=== PATIENT | male | born 1950 | race Caucasian/White ===

== ENCOUNTER 2020-06-14 12:28 | Inpatient (IN) | payer MEDICARE, BC, SELFPAY ==
[2020-06-14] VITALS (10 sets, daily range): BP systolic 80–122; BP diastolic 48–80; PULSE 68–89; RESP 14–28; TEMP 36.4–37.3; O2SAT 95–100; BMI 32.1; BMI 38.7
--- NOTE | 2020-06-14 12:32 | XR_ITS ---
PROCEDURE: XR CHEST PORTABLE CLINICAL HISTORY: sepsis COMPARISON: No exams were available for comparison FINDINGS: There are low lung volumes. Bibasilar atelectasis or infiltrate noted.. Upper lobes are clear. There are degenerative changes in the shoulders. No acute bony abnormalities. IMPRESSION: Low lung volumes with bibasilar atelectasis/infiltrate Dictated by: Mark Posadas MD 06/14/2020 13:06 Mark Posadas MD in [place] 06/14/2020 13:06
--- NOTE | 2020-06-14 12:36 | HMH.EDSKAF ---
ED Disposition Clinical Impression: Toxic epidermal necrolysis, Dehydration Disposition: Admitted As Inpatient Condition on Discharge: Fair - Critical Care Critical Care Time: Yes Attestation: On , the high probability of a clinically significant, sudden or life threatening deterioration of the following system(s) required my full and direct attention, intervention and personal management. The time I documented below is in addition to time spent performing reported procedures but includes the following listed in this critical care notation. Total Critical Care Time: 35 Vital system(s) involved:: Circulatory Failure, Central Nervous System, Metabolic Failure, Respiratory Failure, Renal Failure, Shock (Septic) My critical care processes included: Assessment & monitoring of V/S, Initial and Re-exams, Data Review/Interpretation, Coordinating Care, Medication Orders and management, Documentation Medical Decision Making - Medical Records Medical records reviewed: Yes: I reviewed the patient's medical records. - Steve Inquiry Pt receiving controlled substance: No Vital Signs: 06/14/20 12:29 06/14/20 12:59 Temperature 97.6 F Temperature Source Oral Pulse Rate [Right Radial] 78 73 Respiratory Rate 28 H Blood Pressure [Right Arm] 115/56 L 114/66 Blood Pressure Mean [Right Arm] 75 82 Blood Pressure Source [Right Arm] Automatic Cuff Automatic Cuff Blood Pressure Position [Right Arm] Sitting Sitting 02 Sat by Pulse Oximetry 97 95 Oxygen Delivery Method Room Air Room Air - Lab Data Lab Results 06/14/20 12:39: WBC 11.9 H, RBC 3.88 L, Hgb 11.3 L, Hct 35.3 L, MCV 91.2, MCH 29.1, MCHC 31.9, RDW 18.7 H, Plt Count 424, MPV 7.6, Neut % (Auto) 68.0, Lymph % (Auto) 19.1, [place] % (Auto) 6.2, Eos % (Auto) 6.4, Baso % (Auto) 0.3, Neut # (Auto) 8.1 H, Lymph # (Auto) 2.3, [place] # (Auto) 0.7, Eos # (Auto) 0.8 H, Baso # (Auto) 0.0 06/14/20 12:39: Sodium 132 L, Potassium 5.2 H, Chloride 94 L, Carbon Dioxide 28, Anion Gap 15.2 H, BUN 49 H, Creatinine 1.40 H, Estimated Creat Clear 79, Estimated GFR 50 L, Est GFR ( Amer) 61, Glucose 105 H, Calcium 9.3 06/14/20 12:39: Lactate 1.6 06/14/20 12:39: Total Bilirubin 0.6, Direct Bilirubin 0.5 H, Conjugated Bilirubin 0.0, Indirect Bilirubin 0.1, Unconjugated Bilirubin 0.1, AST 68 H, ALT 18, Alkaline Phosphatase 63, Total Protein 7.5, Albumin 3.5 Result diagrams: 06/14/20 12:39 06/14/20 12:39 Orders (Tests/Meds): ED MEDICATIONS Generic Name Dose Route Start Last Admin Trade Name Daltonq PRN Reason Stop Dose Admin Meropenem 1 gm/ Sodium 100 mls @ 100 mls/hr 06/14/20 13:30 06/14/20 13:12 Chloride IV 06/28/20 13:29 100 mls/hr Q8H BAO Administration Sodium Chloride 1,000 mls @ 100 mls/hr 06/14/20 13:45 Sod Chlor 0.9% 1000ml Bag IV 07/14/20 13:44 .Q10H BAO Sodium Chloride 3 ml 06/14/20 12:30 Sodium Chloride 3% 15ml Neb IH 07/14/20 12:29 ONCE PRN INDUCE SPUTUM COLLECTION Discontinued Medications Generic Name Dose Route Start Last Admin Trade Name Freq PRN Reason Stop Dose Admin Hydrocortisone Sodium Succinate 100 mg 06/14/20 12:35 06/14/20 13:01 Hydrocortisone Sod Succinate 100mg Vial IV 06/14/20 12:36 100 mg ONCE ONE Administration Sodium Chloride 1,000 mls @ 999 mls/hr 06/14/20 12:45 06/14/20 12:47 Sod Chlor 0.9% 1000ml Bag IV 06/14/20 13:45 999 mls/hr .Q1H1M BAO Administration Sodium Chloride 1,000 mls @ 999 mls/hr 06/14/20 12:45 06/14/20 13:12 Sod Chlor 0.9% 1000ml Bag IV 06/14/20 13:45 999 mls/hr .Q1H1M BAO Administration Sodium Chloride 1,000 mls @ 999 mls/hr 06/14/20 12:45 Sod Chlor 0.9% 1000ml Bag IV 06/14/20 13:45 .Q1H1M BAO ORDERS Category Date Time Status Activated Partial Thrombo Time Stat Lab 06/14/20 12:39 Received Covid-19 IgG/IgM ([facility]) Stat Lab 06/14/20 12:39 Received Prothrombin Time INR Stat Lab 06/14/20 12:39 Received Strep Scrn Group A (Rapid) Stat Lab 06/14/20 12:35
--- NOTE | 2020-06-14 12:54 | PC.NURSE ---
rad at BS for portable xray
--- NOTE | 2020-06-14 12:57 | PC.NURSE ---
pharmacy consult r/t allergies and possible reaction to cefepime that is ordered. ER MD gave verbal order for Meropenum, spoke with Ben in pharmacy states that will be okay for pt to have.
[2020-06-14 13:04] LABS: Basophils % 0.3 % (0.1-2.0); Eosinophils # 0.8 K/mm3 (0.0-0.4); Eosinophils % 6.4 % (0.1-12.0); Hematocrit 35.3 % (42.0-52.0); Hemoglobin 11.3 g/dL (14.1-18.0); Lymphocytes # 2.3 K/mm3 (0.7-4.5); Lymphocytes % 19.1 % (10-50); Mean Corpuscular HGB Conc 31.9 g/dL (31.8-35.4); Mean Corpuscular Hemoglobin 29.1 pg (27.0-31.2); Mean Corpuscular Volume 91.2 fl (80-94); Mean Platelet Volume 7.6 fl (7.4-10.4); Monocytes # 0.7 K/mm3 (0.1-1.0); Monocytes % 6.2 % (1.7-9.3); Neutrophils # 8.1 K/mm3 (1.8-7.8); Platelet Count 424 K/mm3 (142-424); Red Blood Count 3.88 M/mm3 (4.60-6.20); Red Cell Distribution Width 18.7 % (11.5-17.5); White Blood Count 11.9 K/mm3 (4.8-10.8)
[2020-06-14 13:20] LABS: Alanine Aminotransferase 18 U/L (12-78); Albumin Level 3.5 g/dl (3.5-5.0); Alkaline Phosphatase 63 U/L (38-126); Aspartate Amino Transferase 68 U/L (17-59); Bilirubin,Direct 0.5 mg/dl (0.0-0.4); Bilirubin,Indirect 0.1 mg/dL (0.0-0.9); Bilirubin,Total 0.6 mg/dl (0.2-1.3); Bilirubin,Unconjugated 0.1 mg/dL (0.0-1.1); Total Protein,Serum 7.5 g/dl (6.3-8.2)
[2020-06-14 13:21] LABS: Anion Gap 15.2 mEq/L (5-15); Blood Urea Nitrogen 49 mg/dl (9-20); Calcium 9.3 mg/dl (8.4-10.2); Carbon Dioxide 28 mmol/L (22.0-30.0); Chloride 94 mmol/L (98-107); Creatinine Clearance Estimated 79 mL/min (50-200); Estimated Glomerular Filt Rate 50 ml/min (>60); GFR (African American) 61 ML/MIN (>60); Glucose 105 mg/dl (74-100); Lactic Acid 1.6 mmol/L (0.7-2.1); Potassium 5.2 mmoL/L (3.5-5.1); Sodium 132 mmol/L (136-145)
--- NOTE | 2020-06-14 13:43 | PC.NURSE ---
ASIA LLOYD spoke with Dr. Hargrove who is litigation assistant for Service pt.
--- NOTE | 2020-06-14 13:44 | PC.NURSE ---
notified care management of admission
[2020-06-14 14:04] LABS: Microscopic, Urine URINE MICROSCOPIC (MICROSCOPIC)
[2020-06-14 14:08] LABS: Appearance,Urine CLEAR (Clear); Bilirubin,Urine Negative (Negative); Blood, Urine 1+ (Negative); Color,Urine YELLOW (Yellow); Glucose,Urine (UA) Negative (Negative); Ketones,Urine Negative (Negative); Leukocyte Esterase,Urine 3+ (Negative); Nitrate,Urine POSITIVE (Negative); Protein,Urine Negative (Negative); Specific Gravity, Urine <= 1.005 (1.005-1.030); Urobilinogen,Urine 0.2 EU/dl (0.2)
--- NOTE | 2020-06-14 14:13 | PC.NURSE ---
COLT ThomasN as BS
[2020-06-14 14:39] LABS: Bacteria,Urine 1+ /lpf; WBC,Urine 20-50 #/hpf (0-3)
--- NOTE | 2020-06-14 14:45 | HMH.HP ---
*Admission Date: 06/14/20 <Daya Gamble - 06/14/20 14:58> *Chief complaint: SOB; rash <Daya Gamble - 06/14/20 14:58> *History of present illness: Mr. Gill is a 69-year-old male with a previous history of CVA, diabetes mellitus, GERD, muscle and muscle cramps who was brought to [facility] for evaluation by his . The patient is cared for at home by his . She has home health who comes once a week. He has left-sided residual from CVA.. The does get him out of bed twice a day with the assistance of a lift. I am unable to understand the patient and history is obtained from his who is a nurse and very informative. She states the rash began about 1 week ago on the left arm. It has gradually progressed to where it is beet red now and extends to the trunk and upper legs, right arm and periarea. He has continued with persistent peeling. She states yesterday she could tell he was not feeling well. He moaned and had a gurgling type respiratory effort. He did sleep well last night but then began with this again this morning. His also notes that she restarted Skelaxin for muscle cramps 2 to 3 weeks ago. It was after this that he developed the rash. The rest of his meds he has been taking for quite a while. She brought him to the emergency room. She states he has not been coughing. He has not had a fever. She is she is not aware of any chest pain or abdominal pain. Patient had a stroke in July 2019 after which he was hospitalized for about a month and a half. He then went home briefly. He had developed a decubitus ulcer on his coccyx area which became worse and he was readmitted to [facility] for wound care in [facility] for this. He was there from August until November and has been treated at home ever since. He has been total care and is followed by Robyn Benton APRN who does home visits for him. He resides in [facility]. With evaluations in the emergency room chest x-ray revealed low lung volumes with bibasilar atelectasis/infiltrate. White blood cell count was elevated at 11,900 with a hemoglobin of 11.3 and hematocrit of 35.3. Sodium was 132 with a potassium of 5.2. Renal function showed insufficiency with a BUN of 49 creatinine of 1.4.. Liver function studies with an elevated AST at 68 and otherwise normal. Lactwasate 1.6. Blood sugar byp395. Urine revealed urinary tract infection with 3+ leuk esterase and 1+ bacteria and positive nitrates. Blood pressure on admission to the emergency room was 80/48 and improved to 122/72 after fluid boluses. O2 sats were 95% on room air. Heart rate was in the 70s. He was afebrile. He was started on meropenem and given fluid boluses. He was also given hydrocortisone 100 mg IV. He was then admitted for further evaluation and treatment. <Daya Gamble 06/14/20 15:37> [facility] History Medical History: Reports:: Cerebrovascular Accident, Diabetes Mellitus Type 2, Gastroesophageal Reflux Disease(GERD), Hypertension, Seizures <Daya Gamble 06/14/20 15:37> *Have you ever received a pneumonia vaccine?: No <Daya Gamble 06/14/20 14:58> *Have you received a flu vaccine this season?: No <Daya Gamble 06/14/20 14:58> Other Medical History: Reports: Hypothyroidism <Daya Gamble 06/14/20 14:58> Other Surgeries: Yes: Hernia Repair <MavisDaya 06/14/20 15:37> Comment: Trach and G-tube placement; ankle surgery; craniotomy for release of pressure from a bleed. 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
[2020-06-14 14:47] LABS: Coronavirus 19 IgG Antibody Negative (Negative); Coronavirus 19 IgM Antibody Negative (Negative)
--- NOTE | 2020-06-14 15:09 | PC.NURSE ---
notified ER of UA results
--- NOTE | 2020-06-14 15:38 | PC.NURSE ---
pt has increased work of breathing, notified ER MD, states to contact RT to place pt on bipap. SaO2 95% on RA, RR 28 RT staff is going to find bipap for pt. ER MD states to order an ABG but states it does not need to be prior to pt going on bipap
--- NOTE | 2020-06-14 15:45 | PC.NURSE ---
contacted second floor to check on status of bed being ready for pt, staff states room is ready for pt. Elo states she will come down to get report on pt.
--- NOTE | 2020-06-14 16:04 | PC.NURSE ---
report given to ARCELIA Hannon at this time.
[2020-06-14 16:14] LABS: Prothrombin Time 10.4 seconds (9.4-11.8)
[2020-06-14 16:15] LABS: Activated Partial Thrombo Time 26.7 seconds (23.6-34.0); INR 0.93 (0.9-1.1)
[2020-06-14 17:35] LABS: POC Glucose,Bedside 114 (70-110)
--- NOTE | 2020-06-14 17:58 | PC.WOUNDNOTE ---
Stage 3 noted to coccyx, Excoriation/Shearing noted to bilateral buttocks
--- NOTE | 2020-06-14 18:00 | PC.WOUNDNOTE ---
Red, scaly rash noted to entire body
[2020-06-14 19:30] LABS: ABG Base Excess -3.1 mmol/L (-2.4-2.3); ABG HCO3 21.8 mmhg (22.0-26.0); ABG Oxygen Saturation 99 % (90-100); ABG PCO2 36.3 mmhg (35.0-45.0); ABG PO2 124.1 mmhg (80-100); ABG TCO2 22.9 mmhg (23-27)
[2020-06-14 19:32] LABS: Allen's Test Acceptable; Oxygen 35 %; PEEP 5; Pressure Support 15; Source Left Radial; Vent Rate 14
[2020-06-14 21:44] LABS: POC Glucose,Bedside 91 (70-110)
[2020-06-15] VITALS (10 sets, daily range): BP systolic 112–142; BP diastolic 53–79; PULSE 85–100; RESP 14–22; TEMP 36.2–37.2; O2SAT 92–98; BMI 38.5
--- NOTE | 2020-06-15 03:13 | PC.NURSE ---
Pt remains alert to self only. Expiratory wheezing noted bilaterally t/o all lung ortega. No cough noted. Reddened, scaly areas noted t/o body. Stage 3 pressure ulcer noted to coccyx, dressing remains CDI. Pt has been a q2h turn and oral care this shift. Pt remains in airborne, droplet and contact precautions for positive COVID swab. New meds ordered per MD Hargrove. No other acute changes or complaints at this time.
[2020-06-15 06:15] LABS: POC Glucose,Bedside 89 (70-110)
--- NOTE | 2020-06-15 07:19 | P.CONPHA_ITS ---
[facility] Pharmacy VTE Monitoring - Patient Demographics Admission date: 06/15/20 Report Date: 06/15/20 Time: 07:19 Allergies/Adverse Reactions: Patient Allergies doxazosin [From Cardura] Allergy (Verified 06/14/20 12:45) Penicillins Allergy (Verified 06/14/20 12:45) cefdinir Adverse Reaction (Verified 06/14/20 12:45) Height: 1.88 m Weight: 136.191 kg Patient Problems: Current Active Problems Toxic epidermal necrolysis (Acute) Dehydration (Acute) History of CVA with residual deficit (Acute) Diabetes mellitus (Chronic) GERD (gastroesophageal reflux disease) (Chronic) Decubitus ulcer (Chronic) Urinary tract infection (Acute) Renal insufficiency (Acute) BMI 32.0-32.9,adult (Chronic) - VTE Risk Labs: VTE Related Lab Results Hgb 11.3 g/dL (14.1-18.0) L 06/14/20 12:39 Hct 35.3 % (42.0-52.0) L 06/14/20 12:39 Plt Count 424 K/mm3 (142-424) 06/14/20 12:39 PT 10.4 seconds (9.4-11.8) 06/14/20 12:39 INR 0.93 (0.9-1.1) 06/14/20 12:39 APTT 26.7 seconds (23.6-34.0) 06/14/20 12:39 BUN 49 mg/dl (9-20) H 06/14/20 12:39 Creatinine 1.40 mg/dl (0.66-1.25) H 06/14/20 12:39 Estimated Creat Clear 79 mL/min (50-200) 06/14/20 12:39 Was VTE Risk Assessment Performed: Yes VTE Score: 5 VTE Risk Level: Low Risk Clinical Trial Participant: No - Prophylaxis VTE Prophylaxis Ordered?: Yes Types of VTE Prophylaxis: TEDS Knee High
--- NOTE | 2020-06-15 09:39 | HMH.ACPN2 ---
<Daya Gamble - Last Filed: 06/15/20 09:39> Internal Medicine - PN: Subj *Date: 06/15/20 *Time: 09:39 Interval history: Mr. Gill does not answer questions this morning. His is at bedside and feels that he is better. He has been comfortable. She states that he slept well. She feels his respiratory status is more stable. She feels that his rash is better. Exam Vital signs and Labs for Last 24 Hours: Temp Pulse Resp BP Pulse Ox 98.4 F 88 19 112/53 L 92 L 06/15/20 08:00 06/15/20 08:00 06/15/20 08:00 06/15/20 08:00 06/15/20 08:00 Laboratory Results - last 24 hr 06/14/20 12:39: WBC 11.9 H, RBC 3.88 L, Hgb 11.3 L, Hct 35.3 L, MCV 91.2, MCH 29.1, MCHC 31.9, RDW 18.7 H, Plt Count 424, MPV 7.6, Neut % (Auto) 68.0, Lymph % (Auto) 19.1, [place] % (Auto) 6.2, Eos % (Auto) 6.4, Baso % (Auto) 0.3, Neut # (Auto) 8.1 H, Lymph # (Auto) 2.3, [place] # (Auto) 0.7, Eos # (Auto) 0.8 H, Baso # (Auto) 0.0 06/14/20 12:39: PT 10.4, INR 0.93, APTT 26.7 06/14/20 12:39: Sodium 132 L, Potassium 5.2 H, Chloride 94 L, Carbon Dioxide 28, Anion Gap 15.2 H, BUN 49 H, Creatinine 1.40 H, Estimated Creat Clear 79, Estimated GFR 50 L, Est GFR ( Amer) 61, Glucose 105 H, Calcium 9.3 06/14/20 12:39: Lactate 1.6 06/14/20 12:39: Total Bilirubin 0.6, Direct Bilirubin 0.5 H, Conjugated Bilirubin 0.0, Indirect Bilirubin 0.1, Unconjugated Bilirubin 0.1, AST 68 H, ALT 18, Alkaline Phosphatase 63, Total Protein 7.5, Albumin 3.5 06/14/20 12:39: SARS-CoV-2 IgG Ab (Rapid) Negative, SARS-CoV-2 IgM Ab (Rapid) Negative 06/14/20 13:51: Urine Color Yellow, Urine Appearance Clear, Urine pH 7.0, Ur Specific [place] <= 1.005, Urine Protein Negative, Urine Glucose (UA) Negative, Urine Ketones Negative, Urine Blood 1+, Urine Nitrate Positive, Urine Bilirubin Negative, Urine Urobilinogen 0.2, Ur Leukocyte Esterase 3+ A, Urine RBC 5-10, Urine WBC 20-50, Ur Squamous Epith Cells 3-5, Urine Bacteria 1+ 06/14/20 15:42: Specimen Source Left radial, O2 % 35, ABG pH 7.40, ABG pCO2 36.3, ABG pO2 124.1 H, ABG HCO3 21.8 L, ABG Total CO2 22.9 L, ABG O2 Saturation 99, ABG Base Excess -3.1 L, Mark Test Acceptable, Vent Rate 14, PEEP 5 06/14/20 17:16: POC Glucose 114 H 06/14/20 21:30: POC Glucose 91 06/15/20 05:58: POC Glucose 89 I & O for Last 24 hours: Intake & Output 06/12/20 06/13/20 06/14/20 06/15/20 11:59 11:59 11:59 11:59 Intake Total 1203 / 1203 Output Total 800 / 800 Balance 403 / 403 Weight 300 lb 4 oz Microbiology Reports for the Last 24 Hours: Microbiology 06/14/20 18:28 Nasopharyngeal Coronavirus COVID-19 PCR - Final - Constitutional no acute distress - *Routine Respiratory Exam Present: CTA bilaterally Comments: Patient with periodic congestive cough but breathing appears easy with no noises. - *Routine Cardiovascular Exam Present: RRR - *Routine Abdominal Exam Present: soft, normoactive bowel sounds Comments: G-tube is in place and site appears clean and dry. - *Routine Extremities Exam Present: edema (Improved) - *Routine Skin Exam Comments: Patient with less erythema on arms abdomen and upper legs. Also the edema is better. He still has some peeling of the skin. All in all the rash does appear much better. - *Routine Neurological Exam Responsive but does not focus today and does not try to answer questions. Assessment and Plan (1) History of CVA with residual deficit Status: Acute Category: Medical Code(s): I69.30 - Unspecified sequelae of cerebral infarction (2) Diabetes mellitus Status: Chronic Category: Medical Code(s): E11.9 - Type 2 diabetes mellitus without complications (3) GERD (gastroesophageal reflux disease) Status: Chronic Category: Medical Code(s): K21.9 - Gastro-esophageal reflux disease without esophagitis (4) Decubitus ulcer Status: Chronic Category: Medical Code(s): L89.90 - Pressure ulcer of unspecified site, unspecified stage (5) Dehydration Status:
--- NOTE | 2020-06-15 10:08 | HMH.PHAINT ---
HOME MEDICATION LIST CLARIFIED USING LIST FROM [facility] AND PT INTERVIEW.
[2020-06-15 11:11] LABS: Chloride 106 mmol/L (98-107); Potassium 4.2 mmoL/L (3.5-5.1); Sodium 138 mmol/L (136-145)
[2020-06-15 11:14] LABS: Alanine Aminotransferase 15 U/L (12-78); Albumin Level 2.8 g/dl (3.5-5.0); Albumin/Globulin Ratio 0.9 (1.1-1.8); Alkaline Phosphatase 62 U/L (38-126); Anion Gap 11.2 mEq/L (5-15); Aspartate Amino Transferase 28 U/L (17-59); Bilirubin,Total 0.3 mg/dl (0.2-1.3); Blood Urea Nitrogen 39 mg/dl (9-20); Calcium 8.4 mg/dl (8.4-10.2); Carbon Dioxide 25 mmol/L (22.0-30.0); Creatinine Clearance Estimated 102 mL/min (50-200); Estimated Glomerular Filt Rate 55 ml/min (>60); GFR (African American) 66 ML/MIN (>60); Globulin 3.2 g/dL (1.3-3.2); Glucose 84 mg/dl (74-100)
[2020-06-15 11:26] LABS: Strep Scrn Group A (Rapid) Negative (Negative)
[2020-06-15 11:39] LABS: POC Glucose,Bedside 93 (70-110)
[2020-06-15 11:55] LABS: Basophils % 0.3 % (0.1-2.0); Eosinophils # 0.3 K/mm3 (0.0-0.4); Eosinophils % 3.9 % (0.1-12.0); Hematocrit 29.7 % (42.0-52.0); Lymphocytes # 1.2 K/mm3 (0.7-4.5); Mean Corpuscular HGB Conc 31.3 g/dL (31.8-35.4); Mean Corpuscular Hemoglobin 29.1 pg (27.0-31.2); Mean Corpuscular Volume 93.1 fl (80-94); Mean Platelet Volume 7.6 fl (7.4-10.4); Monocytes # 0.4 K/mm3 (0.1-1.0); Monocytes % 6.1 % (1.7-9.3); Neutrophils # 4.4 K/mm3 (1.8-7.8); Neutrophils % 70.6 % (37.0-80.0); Platelet Count 325 K/mm3 (142-424); Red Blood Count 3.19 M/mm3 (4.60-6.20); Red Cell Distribution Width 18.6 % (11.5-17.5); White Blood Count 6.3 K/mm3 (4.8-10.8)
[2020-06-15 12:34] LABS: Hemoglobin 9.3 g/dL (14.1-18.0)
--- NOTE | 2020-06-15 15:39 | PC.NURSE ---
1434: SPOKE WITH SON, KAREN CAMEJO, WHO STATED HE WOULD BE PERSON OF CONTACT FOR PATIENT. PASSWORD: HOUSEBOAT SET UP WITH KAREN. I INFORMED HIM TO LET ANY FAMILY AND PATIENT'S KNOW THE PASSWORD SO STAFF COULD GIVE DETAILED INFORMATION ABOUT PATIENT. KAREN VERBALIZED UNDERSTANDING.
[2020-06-15 17:22] LABS: POC Glucose,Bedside 116 (70-110)
--- NOTE | 2020-06-15 19:42 | PC.NURSE ---
Upon assessment this am, this nurse did speak to pt's and make her aware there was no visitors allowed at this time r/t pt being covid positive. Pt's stated she would sign a waiver or whatever she needed to do and didn't plan to leave. This is what she had to do at another hospital, she stated. This nurse did speak with house superior in which came and spoke with pt and handled the situation. Pt has been on RA this shift and has tolerated well. Tube feeds are to begin in the am. This nurse also made A Gaston RN to pass along pt needs a wound consult and to clarify in am if pt if going to be seen by dermatology. I did call and speak with care management and Parisa stated she didn't see a consult or wasn't aware of one in town at this time. Pts stated that Dr. Hargrove stated one would come from [facility] to see pt. Pt has been turned q 2 hrs and dsg to coccyx has been changed this afternoon.HOB remains 45 degrees. Pt continues to be non verbal. Meds have been given per mar and in g tube. Have updated x 2 family members of status. Pt is on lovenox for vte. Hernia noted to abd, s1,s2 and scattered rhonchi to onel lung ortega.
[2020-06-15 23:27] LABS: POC Glucose,Bedside 90 (70-110)
[2020-06-16] VITALS (13 sets, daily range): BP systolic 127–151; BP diastolic 63–66; PULSE 67–105; RESP 18–25; TEMP 36.9–38.1; O2SAT 91–98; BMI 38.5
[2020-06-16 06:59] LABS: POC Glucose,Bedside 114 (70-110)
--- NOTE | 2020-06-16 07:48 | PC.NURSE ---
NO ACUTE CHANGES. REMAINS EDEMATOUS. SKIN IS RED AND SLOUGHING OFF. VSS. O2 APPLIED DUE TO ROOM AIR SAT DROPPING TO 88 THIS MORNING. IV INFUSING PER ORDER. TELLES DRAINING YELLOW URINE. SEIZURE PADS AND BED ALARM ON. CALL LIGHT IN REACH. WILL CONTINUE TO MONITOR.
--- NOTE | 2020-06-16 08:26 | HMH.ACPN2 ---
<Lula Bartholomew - Last Filed: 06/16/20 08:26> Internal Medicine - PN: Subj *Date: 06/16/20 *Time: 08:26 Interval history: Patient did not answer questions this morning. He is resting comfortably. The lab has just been in the room and states the patient did become restless when blood was being drawn. Exam Vital signs and Labs for Last 24 Hours: Temp Pulse Resp BP Pulse Ox 98.8 F 93 H 18 127/64 97 06/16/20 07:53 06/16/20 07:53 06/16/20 07:53 06/16/20 07:53 06/16/20 07:53 Laboratory Results - last 24 hr 06/15/20 09:44: Group A Strep Rapid Negative 06/15/20 10:50: WBC 6.3 D, RBC 3.19 L, Hgb 9.3 L D, Hct 29.7 L, MCV 93.1, MCH 29.1, MCHC 31.3 L, RDW 18.6 H, Plt Count 325, MPV 7.6, Neut % (Auto) 70.6, Lymph % (Auto) 19.0, [place] % (Auto) 6.1, Eos % (Auto) 3.9, Baso % (Auto) 0.3, Neut # (Auto) 4.4, Lymph # (Auto) 1.2, [place] # (Auto) 0.4, Eos # (Auto) 0.3, Baso # (Auto) 0.0 06/15/20 10:50: Sodium 138, Potassium 4.2, Chloride 106, Carbon Dioxide 25, Anion Gap 11.2, BUN 39 H, Creatinine 1.30 H, Estimated Creat Clear 102, Estimated GFR 55 L, Est GFR ( Amer) 66, Glucose 84, Calcium 8.4, Total Bilirubin 0.3, AST 28 D, ALT 15, Alkaline Phosphatase 62, Total Protein 6.0 L, Albumin 2.8 L D, Globulin 3.2, Albumin/Globulin Ratio 0.9 L 06/15/20 11:32: POC Glucose 93 06/15/20 17:03: POC Glucose 116 H 06/15/20 23:06: POC Glucose 90 06/16/20 06:50: POC Glucose 114 H I & O for Last 24 hours: Intake & Output 06/13/20 06/14/20 06/15/20 06/16/20 11:59 11:59 11:59 11:59 Intake Total 1203 / 1203 2409 / 2409 Output Total 800 / 1500 1550 / 1550 Balance 403 / -297 859 / 859 Weight 300 lb 4 oz 300 lb 4 oz Microbiology Reports for the Last 24 Hours: Microbiology 06/14/20 19:33 Urine,Random Urine Culture - Preliminary - Constitutional no acute distress Comments: sleeping, does not wake for exam - *Routine Respiratory Exam Present: CTA bilaterally - *Routine Cardiovascular Exam Present: RRR - *Routine Abdominal Exam Present: soft, normoactive bowel sounds. Absent: tenderness Comments: G-tube in place - *Routine Extremities Exam Present: edema (improving). Absent: cyanosis, clubbing - *Routine Skin Exam Present: warm. Absent: rash Comments: Patient with less erythema on arms and legs. The edema is better as well. He still has some peeling of the skin. - *Routine Neurological Exam patient does not wake for exam Assessment and Plan (1) History of CVA with residual deficit Status: Acute Category: Medical Code(s): I69.30 - Unspecified sequelae of cerebral infarction (2) Diabetes mellitus Status: Chronic Category: Medical Code(s): E11.9 - Type 2 diabetes mellitus without complications (3) GERD (gastroesophageal reflux disease) Status: Chronic Category: Medical Code(s): K21.9 - Gastro-esophageal reflux disease without esophagitis (4) Decubitus ulcer Status: Chronic Category: Medical Code(s): L89.90 - Pressure ulcer of unspecified site, unspecified stage (5) Dehydration Status: Acute Category: Medical Code(s): E86.0 - Dehydration (6) Toxic epidermal necrolysis Status: Acute Category: Medical Code(s): L51.2 - Toxic epidermal necrolysis [[place]] (7) Urinary tract infection Status: Acute Category: Medical Code(s): N39.0 - Urinary tract infection, site not specified (8) Renal insufficiency Status: Acute Category: Medical Code(s): N28.9 - Disorder of kidney and ureter, unspecified (9) BMI 32.0-32.9,adult Status: Chronic Category: Medical Code(s): Z68.32 - Body mass index [BMI] 32.0-32.9, adult (10) Pneumonia due to COVID-19 virus Status: Acute Category: Medical Code(s): U07.1 - COVID-19; J12.82 - Pneumonia due to coronavirus disease 2019 (11) COVID-19 Status: Acute Category: Medical Code(s): U07.1 - COVID-19 - Assessment and plan all Dx Assessment and Plan for all problems:: We will con
[2020-06-16 08:30] LABS: Basophils % 0.1 % (0.1-2.0); Hematocrit 29.2 % (42.0-52.0); Lymphocytes # 0.8 K/mm3 (0.7-4.5); Lymphocytes % 15.8 % (10-50); Mean Corpuscular HGB Conc 30.8 g/dL (31.8-35.4); Mean Corpuscular Hemoglobin 28.9 pg (27.0-31.2); Mean Corpuscular Volume 93.7 fl (80-94); Monocytes # 0.3 K/mm3 (0.1-1.0); Monocytes % 5.5 % (1.7-9.3); Neutrophils # 3.8 K/mm3 (1.8-7.8); Neutrophils % 78.5 % (37.0-80.0); Platelet Count 323 K/mm3 (142-424); Red Blood Count 3.11 M/mm3 (4.60-6.20); Red Cell Distribution Width 18.3 % (11.5-17.5); White Blood Count 4.9 K/mm3 (4.8-10.8)
[2020-06-16 08:40] LABS: Chloride 112 mmol/L (98-107); Sodium 141 mmol/L (136-145)
[2020-06-16 08:41] LABS: Potassium 4.5 mmoL/L (3.5-5.1)
[2020-06-16 08:44] LABS: Anion Gap 11.5 mEq/L (5-15); Blood Urea Nitrogen 31 mg/dl (9-20); Calcium 8.6 mg/dl (8.4-10.2); Carbon Dioxide 22 mmol/L (22.0-30.0); Creatinine Clearance Estimated 120 mL/min (50-200); Estimated Glomerular Filt Rate 66 ml/min (>60); GFR (African American) 80 ML/MIN (>60); Glucose 113 mg/dl (74-100)
--- NOTE | 2020-06-16 10:33 | DIET.NUTRFU ---
Addendum entered by Lilian Christensen 06/16/20 12:21: Goal rate is 88ml/h, not 87. Addendum entered by Lilian Christensen 06/16/20 12:03: Pt on levothyroxine for hypothyroid- HOLD tube feedings one hour before and one hour after medication admin. Goal rate slightly altered to 87ml/h to account for time held. Regimen at 87ml/hr provides 2323kcal, 107g protein(131g protein with Beneprotein), 327g cho, 76g fat, and 1562ml free water Original Note: Nutritional assessment, IP/consult completed. Pt with PEG tube admit with COVID 19. Recommend starting pt on similar continuous TF regimen of Jevity which he has been receiving since 09/30 with good tolerance. Pt requires additional protein rt stage III sacral ulcer, will be provided through Beneprotein with waterflushes. Pt currently receiving IVF at 100ml/hr, recommend decreasing as TF reaches goal rate. Currently recommend minimal water flushes of 60mL q 4h/for irrigation. See below and TF order for specific details. Recommend initiating continuous TF regimen of Jevity 1.2 at 20ml/hr and advance by 10ml/hr q 8hr as tolerated to goal rate of 85ml/hr. Administer additional protein with 1 scoop Beneprotein mixed with 60ml free water q 6hr. Flush tube afterwards with 30ml free water. Administer additional water flushes of 30-60ml q 4h (minimal for irrigation, pt on IVF) Will monitor pt tolerance, wound healing, IVF, other nutritional needs t/o stay to alter as indicated. This regimen provides 2448kcal, 113g protein, 345gcho, 80g fat, and 1646ml free water.
--- NOTE | 2020-06-16 11:47 | PC.NURSE ---
RN aware of elevated temp.
--- NOTE | 2020-06-16 12:34 | CARE MANAGER ---
Spoke with son, Homer. States that they are intending on the patient returning home when he is ready to be discharged. He is already set up with home health through [facility]. Homer says patient's and other family help to care for patient. Son voiced displeasure with treatment of the patient and patient's yesterday. We discussed patient's discharge plan when appropriate for discharge. Provided him with Dr. Hargrove's office phone numbers as would like to call him. Provided my phone number as well for questions/concerns. ARCELIA Cheek
[2020-06-16 16:24] LABS: POC Glucose,Bedside 136 (70-110)
--- NOTE | 2020-06-16 20:02 | PC.NURSE ---
Pt baseline mentation and non verbal. No acute changes. VSS. Ascencio in place and skin condition slightly less red this shift. Did give update to this afternoon. Dsg to coccyx in place. Have turned and repositioned q 2. Oral care provided. Continuous tube feeds, 10 ml residual at 1600.
[2020-06-16 21:26] LABS: POC Glucose,Bedside 116 (70-110)
[2020-06-17] VITALS (9 sets, daily range): BP systolic 134–154; BP diastolic 52–96; PULSE 74–88; RESP 16–25; TEMP 36.4–36.9; O2SAT 88–100; BMI 38.5
--- NOTE | 2020-06-17 04:14 | PC.NURSE ---
pt has had no acute changes. afebrile this shift. iv patent and infusing per order. herrera draining yellow urine. tube feeding continued. no residual on q4h checks. call light in reach. bed safety on. will continue to monitor pt condition
[2020-06-17 06:12] LABS: Chloride 115 mmol/L (98-107); Potassium 4.3 mmoL/L (3.5-5.1); Sodium 144 mmol/L (136-145)
[2020-06-17 06:15] LABS: Alanine Aminotransferase 15 U/L (12-78); Albumin/Globulin Ratio 0.9 (1.1-1.8); Alkaline Phosphatase 56 U/L (38-126); Anion Gap 8.3 mEq/L (5-15); Aspartate Amino Transferase 25 U/L (17-59); Bilirubin,Total 0.2 mg/dl (0.2-1.3); Blood Urea Nitrogen 28 mg/dl (9-20); Carbon Dioxide 25 mmol/L (22.0-30.0); Creatinine Clearance Estimated 132 mL/min (50-200); Estimated Glomerular Filt Rate 74 ml/min (>60); GFR (African American) 89 ML/MIN (>60); Globulin 3.2 g/dL (1.3-3.2); Total Protein,Serum 6.2 g/dl (6.3-8.2)
[2020-06-17 06:16] LABS: Calcium 8.9 mg/dl (8.4-10.2); Glucose 135 mg/dl (74-100)
[2020-06-17 06:35] LABS: POC Glucose,Bedside 138 (70-110)
--- NOTE | 2020-06-17 07:00 | PC.NURSE ---
Sputum cup left at bedside. Pt is non-verbal and unable to communicate understanding.
--- NOTE | 2020-06-17 08:35 | HMH.ACPN2 ---
<Lula Bartholomew - Last Filed: 06/17/20 08:42> Internal Medicine - PN: Subj *Date: 06/17/20 *Time: 08:42 Interval history: Patient is awake this morning but does not track with his eyes. He is nonverbal. He has not had any fever and his sats have been in the 90s on 3 L Exam Vital signs and Labs for Last 24 Hours: Temp Pulse Resp BP Pulse Ox 97.8 F 88 18 144/96 H 97 06/17/20 07:37 06/17/20 07:37 06/17/20 07:37 06/17/20 07:37 06/17/20 07:37 Laboratory Results - last 24 hr 06/16/20 08:03: Sodium 141, Potassium 4.5, Chloride 112 H, Carbon Dioxide 22, Anion Gap 11.5, BUN 31 H, Creatinine 1.10, Estimated Creat Clear 120, Estimated GFR 66, Est GFR ( Amer) 80 D, Glucose 113 H D, Calcium 8.6 06/16/20 15:48: POC Glucose 136 H 06/16/20 21:16: POC Glucose 116 H 06/17/20 05:30: Sodium 144, Potassium 4.3, Chloride 115 H, Carbon Dioxide 25, Anion Gap 8.3, BUN 28 H, Creatinine 1.00, Estimated Creat Clear 132, Estimated GFR 74, Est GFR ( Amer) 89, Glucose 135 H, Calcium 8.9, Total Bilirubin 0.2, AST 25, ALT 15, Alkaline Phosphatase 56, Total Protein 6.2 L, Albumin 3.0 L, Globulin 3.2, Albumin/Globulin Ratio 0.9 L 06/17/20 06:13: POC Glucose 138 H I & O for Last 24 hours: Intake & Output 06/14/20 06/15/20 06/16/20 06/17/20 11:59 11:59 11:59 11:59 Intake Total 1203 / 1203 2409 / 2409 2135 / 2135 Output Total 800 / 1500 1550 / 1550 1900 / 1900 Balance 403 / -297 859 / 859 235 / 235 Weight 300 lb 4 oz 300 lb 4 oz 300 lb 1 oz Microbiology Reports for the Last 24 Hours: Microbiology 06/14/20 19:33 Urine,Random Urine Culture - Preliminary Pseudomonas aeruginosa 06/14/20 12:39 Blood Blood Culture - Preliminary NO GROWTH AFTER 48 HOURS 06/14/20 12:46 Blood Blood Culture - Preliminary NO GROWTH AFTER 48 HOURS - Constitutional no acute distress - *Routine Respiratory Exam Present: rhonchi, wheezes - *Routine Cardiovascular Exam Present: RRR - *Routine Abdominal Exam Present: soft, normoactive bowel sounds. Absent: tenderness Comments: G-tube in place - *Routine Extremities Exam Present: edema (improving but still present in his LE's) - *Routine Skin Exam Comments: Rash is fading on the arms and legs, he has peeling of the skin on the upper extremities. - *Routine Neurological Exam Awake, does not track with his eyes, nonverbal Assessment and Plan (1) History of CVA with residual deficit Status: Acute Category: Medical Code(s): I69.30 - Unspecified sequelae of cerebral infarction (2) Diabetes mellitus Status: Chronic Category: Medical Code(s): E11.9 - Type 2 diabetes mellitus without complications (3) GERD (gastroesophageal reflux disease) Status: Chronic Category: Medical Code(s): K21.9 - Gastro-esophageal reflux disease without esophagitis (4) Decubitus ulcer Status: Chronic Category: Medical Code(s): L89.90 - Pressure ulcer of unspecified site, unspecified stage (5) Dehydration Status: Acute Category: Medical Code(s): E86.0 - Dehydration (6) Toxic epidermal necrolysis Status: Acute Category: Medical Code(s): L51.2 - Toxic epidermal necrolysis [Lyell] (7) Urinary tract infection Status: Acute Category: Medical Code(s): N39.0 - Urinary tract infection, site not specified (8) Renal insufficiency Status: Acute Category: Medical Code(s): N28.9 - Disorder of kidney and ureter, unspecified (9) BMI 32.0-32.9,adult Status: Chronic Category: Medical Code(s): Z68.32 - Body mass index [BMI] 32.0-32.9, adult (10) Pneumonia due to COVID-19 virus Status: Acute Category: Medical Code(s): U07.1 - COVID-19; J12.82 - Pneumonia due to coronavirus disease 2019 (11) COVID-19 Status: Acute Category: Medical Code(s): U07.1 - COVID-19 (12) Anemia Status: Acute Category: Medical Code(s): D64.9 - Anemia, uns
--- NOTE | 2020-06-17 08:53 | HMH.ACPN ---
Internal Medicine - PN: Subj *Date: 06/17/20 *Time: 08:53 Exam Vital signs and Labs for Last 24 Hours: Temp Pulse Resp BP Pulse Ox 97.8 F 88 18 144/96 H 97 06/17/20 07:37 06/17/20 07:37 06/17/20 07:37 06/17/20 07:37 06/17/20 07:37 Laboratory Results - last 24 hr 06/16/20 15:48: POC Glucose 136 H 06/16/20 21:16: POC Glucose 116 H 06/17/20 05:30: Sodium 144, Potassium 4.3, Chloride 115 H, Carbon Dioxide 25, Anion Gap 8.3, BUN 28 H, Creatinine 1.00, Estimated Creat Clear 132, Estimated GFR 74, Est GFR ( Amer) 89, Glucose 135 H, Calcium 8.9, Total Bilirubin 0.2, AST 25, ALT 15, Alkaline Phosphatase 56, Total Protein 6.2 L, Albumin 3.0 L, Globulin 3.2, Albumin/Globulin Ratio 0.9 L 06/17/20 06:13: POC Glucose 138 H I & O for Last 24 hours: Intake & Output 06/14/20 06/15/20 06/16/20 06/17/20 23:59 23:59 23:59 23:59 Intake Total 168 / 1203 2345 / 2345 2203 / 2203 1031 / 1031 Output Total 800 / 800 950 / 1550 600 / 1800 1900 / 1900 Balance -632 / 403 1395 / 795 1603 / 403 -869 / -869 Weight 136.673 kg 136.191 kg 136.191 kg 136.106 kg Microbiology Reports for the Last 24 Hours: Microbiology 06/14/20 19:33 Urine,Random Urine Culture - Preliminary Pseudomonas aeruginosa 06/14/20 12:39 Blood Blood Culture - Preliminary NO GROWTH AFTER 48 HOURS 06/14/20 12:46 Blood Blood Culture - Preliminary NO GROWTH AFTER 48 HOURS Assessment and Plan (1) History of CVA with residual deficit Status: Acute Category: Medical Code(s): I69.30 - Unspecified sequelae of cerebral infarction (2) Diabetes mellitus Status: Chronic Category: Medical Code(s): E11.9 - Type 2 diabetes mellitus without complications (3) GERD (gastroesophageal reflux disease) Status: Chronic Category: Medical Code(s): K21.9 - Gastro-esophageal reflux disease without esophagitis (4) Decubitus ulcer Status: Chronic Category: Medical Code(s): L89.90 - Pressure ulcer of unspecified site, unspecified stage (5) Dehydration Status: Acute Category: Medical Code(s): E86.0 - Dehydration (6) Toxic epidermal necrolysis Status: Acute Category: Medical Code(s): L51.2 - Toxic epidermal necrolysis [Lyell] (7) Urinary tract infection Status: Acute Category: Medical Code(s): N39.0 - Urinary tract infection, site not specified (8) Renal insufficiency Status: Acute Category: Medical Code(s): N28.9 - Disorder of kidney and ureter, unspecified (9) BMI 32.0-32.9,adult Status: Chronic Category: Medical Code(s): Z68.32 - Body mass index [BMI] 32.0-32.9, adult (10) Pneumonia due to COVID-19 virus Status: Acute Category: Medical Code(s): U07.1 - COVID-19; J12.82 - Pneumonia due to coronavirus disease 2019 (11) COVID-19 Status: Acute Category: Medical Code(s): U07.1 - COVID-19 (12) Anemia Status: Acute Category: Medical Code(s): D64.9 - Anemia, unspecified (13) Pseudomonas urinary tract infection Status: Acute Category: Medical Code(s): N39.0 - Urinary tract infection, site not specified; B96.5 - Pseudomonas (aeruginosa) (mallei) (pseudomallei) as the cause of diseases classified elsewhere The patient's infection will respond to the chosen ABx?: Yes Is the patient receiving the right drug, dose, and route?: Yes Could a more targeted ABx be ordered?: No (SENSITIVE TO PSEUDOMONAS IN URINE)
--- NOTE | 2020-06-17 09:19 | XR_ITS ---
PROCEDURE: XR CHEST PORTABLE PICC PLAC CLINICAL HISTORY: Confirm PICC line placement COMPARISON: CR XR CHEST PORTABLE from 06/14/2020 FINDINGS: Left upper extremity PICC line has been placed. The line is curled in the subclavian region projecting back upon itself. The distal tip is difficult to visualize due to the overlying bony structures. There is cardiomegaly with low lung volumes with suspected left lower lobe infiltrate. IMPRESSION: The PICC line is curled in the subclavian region with the tip projecting back upon itself Cardiomegaly with left lower lobe infiltrate. Dictated by: Mark Posadas MD 06/17/2020 14:23 Mark Posadas MD in [facility] 06/17/2020 14:23
[2020-06-17 12:35] LABS: POC Glucose,Bedside 97 (70-110)
--- NOTE | 2020-06-17 14:40 | XR_ITS ---
PROCEDURE: XR CHEST PORTABLE CLINICAL HISTORY: repostion of picc line COMPARISON: CR XR CHEST PORTABLE from 06/14/2020 CR XR CHEST PORTABLE PICC PLAC from 06/17/2020 FINDINGS: PICC line has been repositioned. The tip is now in the region the distal SVC/right atrium and could be pulled back 2 cm. Mild cardiomegaly without failure. Consolidation noted in the left lung base with small left effusion. There are degenerative changes in the shoulders. IMPRESSION: Status post repositioning of the PICC line with the tip in the region the distal SVC/right atrium. Cardiomegaly with left basilar infiltrate and small left effusion. Dictated by: Mark Posadas MD 06/17/2020 14:53 Mark Posadas MD in [facility] 06/17/2020 14:53
[2020-06-17 19:55] LABS: POC Glucose,Bedside 143 (70-110)
[2020-06-17 22:31] LABS: POC Glucose,Bedside 93 (70-110)
--- NOTE | 2020-06-17 23:39 | PC.NURSE ---
[address] TRASH AND LINENS EMPTIED
[2020-06-18] VITALS (8 sets, daily range): BP systolic 136–166; BP diastolic 58–98; PULSE 52–89; RESP 18–22; TEMP 36.7–37.1; O2SAT 94–98; BMI 38.5
--- NOTE | 2020-06-18 06:02 | PC.NURSE ---
[address] PATIENT SLEEPING AT THIS TIME . TRASH AND LINENS EMPTIED
[2020-06-18 06:35] LABS: POC Glucose,Bedside 134 (70-110)
[2020-06-18 06:52] LABS: Chloride 116 mmol/L (98-107); Sodium 146 mmol/L (136-145)
[2020-06-18 06:53] LABS: Potassium 4.1 mmoL/L (3.5-5.1)
[2020-06-18 06:55] LABS: Alanine Aminotransferase 14 U/L (12-78); Alkaline Phosphatase 59 U/L (38-126); Anion Gap 7.1 mEq/L (5-15); Aspartate Amino Transferase 31 U/L (17-59); Bilirubin,Total 0.3 mg/dl (0.2-1.3); Blood Urea Nitrogen 25 mg/dl (9-20); Carbon Dioxide 27 mmol/L (22.0-30.0); Creatinine Clearance Estimated 132 mL/min (50-200); Estimated Glomerular Filt Rate 74 ml/min (>60); GFR (African American) 89 ML/MIN (>60)
[2020-06-18 06:56] LABS: Albumin Level 2.9 g/dl (3.5-5.0); Albumin/Globulin Ratio 0.9 (1.1-1.8); Calcium 8.8 mg/dl (8.4-10.2); Globulin 3.1 g/dL (1.3-3.2); Glucose 125 mg/dl (74-100)
--- NOTE | 2020-06-18 07:55 | PC.NURSE ---
Pt. remained afebrile. No episodes of n/v, soa. q2h t/r. No gastric residuals; tube feedings per order. Intermittent, wet nonproductive cough noted. Room air sat: 96%, however pt. work of breathing increased, thus pt. placed on 1l nc with o2 sat 98% and no soa noted.
--- NOTE | 2020-06-18 08:18 | PC.NURSE ---
late entry for 06/17/2020. he is ao to self. attempted to wean o2 without success, he has been turned q2hrs with oral care, feeding tube in pace, pills crushed and admin per tube.
--- NOTE | 2020-06-18 08:35 | HMH.ACPN2 ---
<Lula Bartholomew - Last Filed: 06/18/20 08:35> Internal Medicine - PN: Subj *Date: 06/18/20 *Time: 08:35 Interval history: Patient seems to be doing better today. He does open his eyes but is nonverbal. His rash is improving as is his respiratory status. Exam Vital signs and Labs for Last 24 Hours: Temp Pulse Resp BP Pulse Ox 98.1 F 55 L 22 162/58 H 96 06/18/20 04:00 06/18/20 06:22 06/18/20 04:00 06/18/20 04:00 06/18/20 06:22 Laboratory Results - last 24 hr 06/17/20 12:13: POC Glucose 97 06/17/20 17:42: POC Glucose 143 H 06/17/20 22:08: POC Glucose 93 06/18/20 06:06: POC Glucose 134 H 06/18/20 06:07: Sodium 146 H, Potassium 4.1, Chloride 116 H, Carbon Dioxide 27, Anion Gap 7.1, BUN 25 H, Creatinine 1.00, Estimated Creat Clear 132, Estimated GFR 74, Est GFR ( Amer) 89, Glucose 125 H, Calcium 8.8, Total Bilirubin 0.3, AST 31, ALT 14, Alkaline Phosphatase 59, Total Protein 6.0 L, Albumin 2.9 L, Globulin 3.1, Albumin/Globulin Ratio 0.9 L I & O for Last 24 hours: Intake & Output 06/15/20 06/16/20 06/17/20 06/18/20 11:59 11:59 11:59 11:59 Intake Total 1203 / 1203 2409 / 2409 2135 / 2135 Output Total 800 / 1500 1550 / 1550 1900 / 1900 1100 / 1100 Balance 403 / -297 859 / 859 235 / 235 -1100 / -1100 Weight 300 lb 4 oz 300 lb 4 oz 300 lb 1 oz 300 lb Microbiology Reports for the Last 24 Hours: Microbiology 06/15/20 09:44 Throat Group A Streptococcus Screen ([facility]) - Final Negative for Group A Streptococcus. 06/14/20 19:33 Urine,Random Urine Culture - Preliminary Pseudomonas aeruginosa - Constitutional no acute distress - *Routine Respiratory Exam Absent: rhonchi, wheezes Comments: better air movement - *Routine Cardiovascular Exam Present: RRR - *Routine Abdominal Exam Present: soft, normoactive bowel sounds. Absent: tenderness Comments: G-tube in place - *Routine Extremities Exam Present: edema - *Routine Skin Exam Comments: rash is fading, skin on the trunk and arms is peeling - *Routine Neurological Exam opens eyes but cannot respond Assessment and Plan (1) History of CVA with residual deficit Status: Acute Category: Medical Code(s): I69.30 - Unspecified sequelae of cerebral infarction (2) Diabetes mellitus Status: Chronic Category: Medical Code(s): E11.9 - Type 2 diabetes mellitus without complications (3) GERD (gastroesophageal reflux disease) Status: Chronic Category: Medical Code(s): K21.9 - Gastro-esophageal reflux disease without esophagitis (4) Decubitus ulcer Status: Chronic Category: Medical Code(s): L89.90 - Pressure ulcer of unspecified site, unspecified stage (5) Dehydration Status: Acute Category: Medical Code(s): E86.0 - Dehydration (6) Toxic epidermal necrolysis Status: Acute Category: Medical Code(s): L51.2 - Toxic epidermal necrolysis [Lyell] (7) Urinary tract infection Status: Acute Category: Medical Code(s): N39.0 - Urinary tract infection, site not specified (8) Renal insufficiency Status: Acute Category: Medical Code(s): N28.9 - Disorder of kidney and ureter, unspecified (9) BMI 32.0-32.9,adult Status: Chronic Category: Medical Code(s): Z68.32 - Body mass index [BMI] 32.0-32.9, adult (10) Pneumonia due to COVID-19 virus Status: Acute Category: Medical Code(s): U07.1 - COVID-19; J12.82 - Pneumonia due to coronavirus disease 2019 (11) COVID-19 Status: Acute Category: Medical Code(s): U07.1 - COVID-19 (12) Anemia Status: Acute Category: Medical Code(s): D64.9 - Anemia, unspecified (13) Pseudomonas urinary tract infection Status: Acute Category: Medical Code(s): N39.0 - Urinary tract infection, site not specified; B96.5 - Pseudomonas (aeruginosa) (mallei) (pseudomallei) as the cause of diseases classified elsewhere - Assessment and plan all Dx Assessment and Plan for a
--- NOTE | 2020-06-18 09:58 | SW/DCPLANNER ---
SET UP IV ANTIBIOTICS FOR THIS PATIENT FOR 7 DAYS....HE IS ALREADY ESTABLISHED WITH [facility] OUT OF [place].. I HAVE ALREADY MADE CONTACT WITH [facility]ERSON[facility]....HE WILL DISCHARGE LATER IN THE DAY... HOME HEALTH WILL SEE HIM LATER IN THE EVENING...I HAVE NOTIFIED OF HIS DISCHARGE..
--- NOTE | 2020-06-18 10:49 | PC.NURSE ---
MR CAMARGO RA SAT IS 88%, HE MAY BENEFIT FROM HOME O2 ON DISCHARGE.
--- NOTE | 2020-06-18 13:56 | DIET.NUTRFU ---
Pt has been tolerating tube feeds well and is at goal rate of 88ml/hr for 22h(held for levothyroxine), initiated 2/. Updates obtained per nursing verbal discussion, limited documentation available at this time, consequently Is and Os are inaccurate, goal rate tube feeds and minimal water flushes provide ~2500ml. He continues on IVF 100ml/h, continuing to monitor and alter as needed. Weight has remained stable, he has not had a BM, improvement elevated BUN, slight increase hypernatremia, K wnl, BG wnl-moderate.
[2020-06-18 17:21] LABS: POC Glucose,Bedside 99 (70-110)
--- NOTE | 2020-06-19 11:13 | HMH.DCSUM ---
General - General Admission date:: 06/14/20 Discharge date: 06/18/20 HPI HPI: Mr. Gill is a 69-year-old male with a previous history of CVA, diabetes mellitus, GERD, muscle and muscle cramps who was brought to [facility] for evaluation by his . The patient is cared for at home by his . She has home health who comes once a week. He has left-sided residual from CVA.. The does get him out of bed twice a day with the assistance of a lift. I am unable to understand the patient and history is obtained from his who is a nurse and very informative. She states the rash began about 1 week ago on the left arm. It has gradually progressed to where it is beet red now and extends to the trunk and upper legs, right arm and periarea. He has continued with persistent peeling. She states yesterday she could tell he was not feeling well. He moaned and had a gurgling type respiratory effort. He did sleep well last night but then began with this again this morning. His also notes that she restarted Skelaxin for muscle cramps 2 to 3 weeks ago. It was after this that he developed the rash. The rest of his meds he has been taking for quite a while. She brought him to the emergency room. She states he has not been coughing. He has not had a fever. She is she is not aware of any chest pain or abdominal pain. Patient had a stroke in July 2019 after which he was hospitalized for about a month and a half. He then went home briefly. He had developed a decubitus ulcer on his coccyx area which became worse and he was readmitted to [facility] for wound care in [facility] for this. He was there from August until November and has been treated at home ever since. He has been total care and is followed by Robyn Benton APRN who does home visits for him. He resides in [facility]. With evaluations in the emergency room chest x-ray revealed low lung volumes with bibasilar atelectasis/infiltrate. White blood cell count was elevated at 11,900 with a hemoglobin of 11.3 and hematocrit of 35.3. Sodium was 132 with a potassium of 5.2. Renal function showed insufficiency with a BUN of 49 creatinine of 1.4.. Liver function studies with an elevated AST at 68 and otherwise normal. Lactwasate 1.6. Blood sugar [id number]. Urine revealed urinary tract infection with 3+ leuk esterase and 1+ bacteria and positive nitrates. Blood pressure on admission to the emergency room was 80/48 and improved to 122/72 after fluid boluses. O2 sats were 95% on room air. Heart rate was in the 70s. He was afebrile. He was started on meropenem and given fluid boluses. He was also given hydrocortisone 100 mg IV. He was then admitted for further evaluation and treatment. Hospital Course Hospital Course: The patient was started on IV fluids and meropenem. Duo nebs were initiated and a sputum culture was ordered. He was started on sliding scale insulin. He was started on BiPAP and his chest x-ray showed a possible pneumonia, therefore a Covid swab was ordered and he was placed in isolation. His Covid swab did return positive. He was started on Covid protocol. His home medications were also restarted. His rash improved throughout his stay and his white blood cell count normalized. His renal function improved as well. His oxygen was in the 90s on 3 L. His urine culture returned positive for Pseudomonas, which was sensitive to meropenem. He did have some wheezing, which resolved by 06/18/2020. A PICC line was placed for continued IV antibiotics. By 06/18/2020, the patient was stable to be discharged home on continued meropenem and oxygen. He will also was also discharged on steroids and Covid vitamins. He will follow-up with his primary care physician. Objective Vital signs: Temp Pulse Resp BP Pulse Ox 98.2 F 89 20 156/98 H 95 06/18/20 16:00 06/18/20 16:00 06/18/20 16:00 06/18/20 16:00 06/18/20 16:00 Narrative: - Con
== END 2020-06-18 17:55 | disposition home or self-care (01) | DRG 595 ==
LOC: ER 13:51 → 2ND 13:54
PROVIDERS: Nurse Practitioner Family; Admitting Provider Family Medicine; Emergency Provider Emergency Medicine; PCP Nurse Practitioner; Visit Provider Family Medicine
DX: L51.2 Toxic epidermal necrolysis [Lyell] (principal); U07.1 COVID-19; J12.82 Pneumonia due to coronavirus disease 2019; N39.0 Urinary tract infection, site not specified; I69.854 Hemiplegia and hemiparesis following other cerebrovascular disease affecting left non-dominant side; L89.159 Pressure ulcer of sacral region, unspecified stage; E03.9 Hypothyroidism, unspecified; E11.9 Type 2 diabetes mellitus without complications; E86.0 Dehydration
CPT/HCPCS: 36415; 36569; 71045; 80048; 80053; 80076; 81001; 82803; 82962; 83605; 85025; 85610; 85730; 86328; 87040; 87086; 87088; 87186; 87430; 94640; 94660; 94761; 96365; 96367; 96375; 99285; C1751; J2185; U0003